=== PATIENT | female | born 1970 | race Caucasian/White ===

== ENCOUNTER → 2021-03-31 | Outpatient (CLI) | payer BC | LOC: KOH-I 15:18 | DX: M25.562 Pain in left knee (principal); R60.0 Localized edema | CPT/HCPCS: 73564 ==

== ENCOUNTER → 2021-04-15 | Outpatient (CLI) | payer BC ==
[2021-04-15 17:14] LABS: HEMOGLOBIN 13.5 gm/dl (12.3-15.3); RED BLOOD COUNT 4.42 M/UL (4.00-5.10)
[2021-04-15 17:35] LABS: BUN/CREATININE RATIO 12 (0-10)
== END ==
LOC: LAB 16:21
PROVIDERS: Nurse Practitioner
DX: R07.9 Chest pain, unspecified (principal); R06.02 Shortness of breath; Z86.16 Personal history of COVID-19; R91.1 Solitary pulmonary nodule
CPT/HCPCS: 36415; 71046; 80053; 85025; 85379

== ENCOUNTER → 2022-01-07 | Day surgery (SDC) | payer BC ==
[~2022-01-07] MED LIST: ESTRACE2 MG PO; GABAPENTIN100 MG PO; LINZESS290 MCG PO; PEPCID20 MG PO; PROMETRIUM100 MG PO; PROTONIX40 MG PO; VITAMIN B-12100 MCG PO; VITAMIN D310 MC2 PO; XYZAL5 MG PO; ZANAFLEX4 MG PO; ZESTRIL10 MG PO
== END | disposition home or self-care (01) ==
LOC: OR 08:08
DX: K31.9 Disease of stomach and duodenum, unspecified (principal); K31.A11 Gastric intestinal metaplasia without dysplasia, involving the antrum; K21.00 Gastro-esophageal reflux disease with esophagitis, without bleeding; K29.60 Other gastritis without bleeding; K31.7 Polyp of stomach and duodenum; I10 Essential (primary) hypertension
CPT/HCPCS: J2250; J2704; J3010; J7040

== ENCOUNTER → 2022-05-06 | Outpatient (CLI) | payer BC | LOC: HEART 5 04-29 09:00 | DX: R00.2 Palpitations (principal); R55 Syncope and collapse ==